=== PATIENT | female | born 1935 | race Caucasian/White ===

== ENCOUNTER → 2019-09-08 | Emergency (ER) | payer OTHER ==
[~2019-09-08] VITALS: Ht 160 cm; Wt 79.4 kg
[~2019-09-08] MED LIST: ACETAMINOPHEN 325 MG TAB PO ONE; AMLO5TAB15 PO; ATEN50TA PO; FURO20TA3 PO; GABA300C10 PO; GENUVIA PO; GLIP5TAB12 PO; LISI30TA4 PO; METF-370 PO; NEOMYCIN-BACITRACIN-POLYM 15GM TOP OINT TOP SCH; NEOMYCIN-BACITRACIN-POLYM UNITDOSE PKG TOP OINT TOP ONE; POTASSIUM CHLORIDE 8 MEQ; TETANUS-DIPTH-ACEL PERTUSSIS 0.5ML SYR Tdap IM ONE; traMADol HCL 50 MG TAB ONE; traMADol HCL 50 MG TAB PO ONE
[2019-09-08 15:38] VITALS: BP 133/74
== END | disposition home or self-care (01) ==
LOC: EDUNIT# 11:34 → EDBD 11:46 → ER 11:46
DX: S93.402A Sprain of unspecified ligament of left ankle, initial encounter (principal); S73.102A Unspecified sprain of left hip, initial encounter; E11.9 Type 2 diabetes mellitus without complications; M10.9 Gout, unspecified; E78.5 Hyperlipidemia, unspecified; I10 Essential (primary) hypertension; W01.0XXA Fall on same level from slipping, tripping and stumbling without subsequent striking against object, initial encounter; Y93.89 Activity, other specified; Y92.89 Other specified places as the place of occurrence of the external cause; Y99.8 Other external cause status
CPT/HCPCS: 29515; 72192; 73130; 73610; 90471; 90715